=== PATIENT | male | born 1955 | race Caucasian/White ===

== ENCOUNTER 2017-01-21 12:24 | Emergency (ER) | payer OTHER, MEDICAID ==
--- NOTE | 2017-01-21 13:16 | EDPHY ---
H & P Time Seen by Provider: 01/21/17 13:13 HPI/ROS: CHIEF COMPLAINT: Productive cough, dyspnea HISTORY OF PRESENT ILLNESS: This patient is a HIV+ 61 year old male who presents to the Emergency Department complaining of productive cough and associated dyspnea over the past two weeks. He states that he has been coughing up green mucous since presentation of symptoms. He describes difficulty walking up a flight of stairs secondary to shortness of breath. He describes one episode of subjective fever that has since subsided. He denies any additional symptoms. No chest pain, nausea or vomiting, chills, or urinary complaints. He is taking immunosuppressants at present and is followed by [facility]. He reports a CD4 count greater than 200 and viral load undetectable for many years. He denies any prior opportunistic infections. REVIEW OF SYSTEMS: Constitutional: +fever, resolved; no chills Eyes: No visual changes ENT: No sore throat Respiratory: +cough, +shortness of breath Cardiac: No chest pain Gastrointestinal: No nausea, no vomiting, no abdominal pain Genitourinary: No hematuria, no dysuria Musculoskeletal: No leg pain or swelling Skin: No rash Neurological: No headache, no numbness, no weakness Psychiatric: No depression Past Medical/Surgical History: 1. HIV+ (followed by [facility]) 2. Toxic megacolon with partial colectomy 3. Remote history of rectal cancer with chemo and radiation Social History: Smokes marijuana occasionally. Quit smoking tobacco nine years ago. Smoking Status: Former smoker Physical Exam: General Appearance: Alert, no distress Eyes: Pupils equal and round, no conjunctival pallor or injection ENT, Mouth: Mucous membranes moist Neck: Normal inspection Respiratory: Lungs are clear to auscultation Cardiovascular: Regular rate and rhythm Gastrointestinal: Abdomen is soft and non- tender Neurological: A&O, nonfocal, normal gait Skin: Warm and dry, no rash Extremities: Nontender, no pedal edema Psychiatric: Mood and affect normal Constitutional: Initial Vital Signs Temperature (C) 37.2 C 01/21/17 12:27 Heart Rate 91 01/21/17 12:27 Respiratory Rate 16 01/21/17 12:27 Blood Pressure 125/66 H 01/21/17 12:27 O2 Sat (%) 92 01/21/17 12:27 O2 Delivery Mode Room Air Allergies/Adverse Reactions: iodine Allergy (Verified 01/21/17 12:26) Home Medications: Medication Instructions Recorded Abacavir Sulfate/Lamivudine 1 each PO DAILY 10/10/14 [Epzicom Tablet] Ritonavir [Norvir] 100 mg PO DAILY 10/10/14 oxyCODONE IR [Oxycodone Ir (*)] 5 mg PO BID PRN 10/10/14 Darunavir Ethanolate [Prezista] 800 mg PO DAILY 10/11/14 Albuterol [Proventil Inhaler HFA 2 puffs IH QID PRN #1 mdi 01/21/17 (*)] Doxycycline Hyclate 100 mg PO BID #20 tablet 01/21/17 Fluticasone/Salmeter 250/50Mcg 1 puffs IH BID #1 disk 01/21/17 [Advair 250/50 (*)] Medical Decision Making ED Course/Re-evaluation: This is a HIV+ 61 year old male who presents with complaints of productive cough and dyspnea persisting over the past two weeks with slight improvement over time. He is currently taking Epzicom, Norvir, and Prezista for HIV+ status. He is afebrile at time of presentation with temp 37.2C. Lungs are clear to auscultation on exam. Does not meet SIRS criteria. Will proceed with chest x-ray. Chest x-ray reveals acute bronchitis but no pneumonia. I discussed these results with the patient and plan to treat with course of doxycycline for possible community-acquired pneumonia. I do not suspect opportunistic infection in this pt. He is agreeable to this and will be discharged home in good condition with instructions to follow-up with his PCP on Monday. He is given customary return precautions prior to discharge. Differential Diagnosis: includes though not limited to PCP pneumonia, sepsis, hypoxia, bronchospasm Departure - Departure Disposition: Home, Routine, Self-Care Clinical Impression: Acute bronchitis Condition: Good Instructions: Acute Bronchitis (ED) Additional Instructions: 1. Take the full course of doxycycline as prescribed. 2. Follow-up with your primary care provider on Monday for reevaluation. 3. Return to the Emergency Department with worsening shortness of breath, if you cough up blood, if you have a high uncontrollable fever, or for other serious concerns. Referrals: Sary Stephens NP [Primary Care Provider] - As per Instructions Prescriptions: Albuterol [Proventil Inhaler HFA (*)] 2 puffs IH QID PRN #1 mdi PRN Reason: Short Of Breath/Dyspnea Doxycycline Hyclate 100 mg PO BID #20 tablet Fluticasone/Salmeter 250/50Mcg [Advair 250/50 (*)] 1 puffs IH BID #1 disk Report Scribed for: Ale San Report Scribed by: Karrie Keen Date of Report: 01/21/17 Time of Report: 13:16 Physician Review and Approval Statement: 01/21/17 13:16 Portions of this note were transcribed by a medical clerk. I personally performed a history, physical exam, medical decision making, and confirmed accuracy of information the transcribed note.
[2017-01-21 13:48] VITALS: BP 118/69; PULSE 75; RESP 18; TEMP 97.9; O2SAT 95
== END 2017-01-21 13:51 | disposition home or self-care (01) ==
DX: J20.9 Acute bronchitis, unspecified (principal); B20 Human immunodeficiency virus [HIV] disease; Z87.891 Personal history of nicotine dependence

== ENCOUNTER → 2017-02-16 | Outpatient (CLI) | payer OTHER, MEDICAID | LOC: BHFA 09:30 | PROVIDERS: ATTEND Internal Medicine Pulmonary Disease | DX: J44.9 Chronic obstructive pulmonary disease, unspecified (principal) ==

== ENCOUNTER → 2018-05-03 | Outpatient (CLI) | payer OTHER, MEDICAID | LOC: BHFA 11:00 | PROVIDERS: ATTEND Internal Medicine Cardiovascular Disease | DX: J44.9 Chronic obstructive pulmonary disease, unspecified (principal) ==

== ENCOUNTER → 2019-02-12 | Outpatient (CLI) | payer OTHER, MEDICAID | LOC: FIMAGING 09:26 ==